=== PATIENT | female | born 1960 | race Caucasian/White ===

== ENCOUNTER 2017-10-01 05:42 | Day surgery (SDC) | payer OTHER ==
[2017-10-01] MEDS ORDERED: MIDAZOLAM 1 MG/ML 2 ML INJ (07:49)
[2017-10-01] MEDS ORDERED: FENTAnyl 50 MCG/ML VIAL (07:49)
== END 2017-10-01 14:47 | disposition home or self-care (01) ==
LOC: GIL 05:42
DX: K29.50 Unspecified chronic gastritis without bleeding (principal); I10 Essential (primary) hypertension
CPT/HCPCS: 43239; 87081